=== PATIENT | male | born 1945 | race Caucasian/White ===

== ENCOUNTER 2021-02-03 13:55 | Emergency (ER) | payer MEDICARE ==
[2021-02-03 15:56] VITALS: BP 142/73; PULSE 63; RESP 16; TEMP 97.8
[2021-02-03] MEDS ORDERED: HYDROcodone/APAP 5-325MG 1 EACH TAB PO STA (18:20)
--- NOTE | 2021-02-03 18:25 | ED ---
General Adult HPI - General Chief complaint: Extremity Problem,Nontraumatic Stated complaint: EXTREMITY PAIN Time Seen by Provider: 02/03/21 17:55 Source: patient, family, RN notes reviewed, old records reviewed Mode of arrival: ambulatory Limitations: no limitations - History of Present Illness Initial comments: This is a well-appearing 75-year-old male, alert and oriented 4, presents to the emergency room with a family member complaining of bilateral feet pain for the past week. Patient states he did not have any injury. He describes the pain as burning and awakens him at night. It is worse at night and has difficulty sleeping. He states that the right one is more swollen around the right great toe. Denies any redness. He states that during the day when he is up walking it gets a little better. He denies any fevers. Denies any other joint involvement. He has no medical history other than hypertension. He is a smoker. -: week(s) (1) Location: left, right, lower extremity (Feet) Radiation: non-radiation Severity scale (1-10): 7 Quality: aching Consistency: constant Improves with: other Worsens with: other (Elevation) Associated Symptoms: denies other symptoms Treatments Prior to Arrival: other (Topical cortisone cream) - Related Data Home Medications Medication Instructions Recorded Confirmed Carvedilol [Coreg] 18.75 mg PO HS 02/03/21 02/03/21 Carvedilol [Coreg] 25 mg PO DAILY 02/03/21 02/03/21 amLODIPine [Norvasc] 5 mg PO BID 02/03/21 02/03/21 hydrALAZINE HCL [Apresoline] 50 mg PO BID 02/03/21 02/03/21 Previous Rx's Medication Instructions Recorded predniSONE 50 mg PO DAILY #5 tab 02/03/21 Allergies Allergy/AdvReac Type Severity Reaction Status Date / Time No Known Allergies Allergy Verified 02/03/21 19:50 Review of Systems ROS Statement: Those systems with pertinent positive or pertinent negative responses have been documented in the HPI. ROS Other: All systems not noted in ROS Statement are negative. Past Medical History Past Medical History: Hypertension History of Any Multi-Drug Resistant Organisms: None Reported Past Surgical History: Orthopedic Surgery Past Psychological History: No Psychological Hx Reported Smoking Status: Current every day smoker Past Alcohol Use History: None Reported Past Drug Use History: None Reported General Exam Limitations: no limitations General appearance: alert, in no apparent distress Head exam: Present: atraumatic, normocephalic, normal inspection Eye exam: Present: normal appearance, EOMI Respiratory exam: Present: rhonchi. Absent: wheezes, stridor, chest wall tenderness, accessory muscle use Cardiovascular Exam: Present: regular rate, normal rhythm, normal heart sounds. Absent: systolic murmur, diastolic murmur, rubs, gallop, clicks Left Ankle exam: Present: normal inspection, full ROM. Absent: abrasion, laceration, ecchymosis, deformity, crepitus, erythema Foot/Toe exam: Present: normal inspection, full ROM, tenderness (Plantar surface), swelling (Trace) Neurovascular tendon exam: Present: no vascular compromise. Absent: pulse deficit, abnormal cap refill, pallor, foot drop Right Ankle exam: Present: full ROM, swelling. Absent: ecchymosis, deformity, erythema Foot/Toe exam: Present: tenderness (Plantar surface), swelling (surrounding great toe). Absent: ecchymosis, erythema Neurovascular tendon exam: Absent: no vascular compromise, pulse deficit, abnormal cap refill, pallor Back exam: Absent: tenderness Neurological exam: Present: alert, oriented X3 Psychiatric exam: Present: normal affect, normal mood Skin exam: Present: warm, dry, intact, normal color. Absent: rash, cyanosis, diaphoretic, erythema, petechiae, pallor Course Vital Signs 02/03/21 15:52 Temperature 97.8 F Pulse Rate 63 Respiratory 16 Rate Blood Pressure 142/73 O2 Sat by Pulse 95 Oximetry Medical Decision Making - Medical Decision Making This is a well-appearing 75-year-old male who presents to the emergency room with lateral foot pain. Patient states has been ongoing for 1 week. States th at the pain is burning in nature and keeps him up at night. He states that during the day it is not as bad. Denies any lower leg pain. He has not had this happen before. There is no erythema noted. Capillary refill is less than 2 seconds and pedal pulses are present bilaterally. Denies any other joint pain or swelling. He denies history of diabetes. No evidence of Ariza's neuroma. There is no rashes noted. He states that he did get some relief with topical cortisone cream but only lasted for a short few hours. X-ray of the right foot and ankle show no evidence of acute fracture. 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 He'll be prescribed a 5 day course of prednisone and directed to follow up with podiatry Case discussed with Dr. Hargrove who was also at bedside. Disposition Clinical Impression: Arthritis Disposition: HOME SELF-CARE Condition: Good Instructions (If sedation given, give patient instructions): Osteoarthritis (ED) Additional Instructions: Take Tylenol and prednisone as prescribed for pain. Do not take Motrin while taking prednisone. Follow-up with podiatry next week. Return to the emergency room with any new or worsening symptoms including fever, redness or increased pain. Prescriptions: predniSONE 50 mg PO DAILY #5 tab Is patient prescribed a controlled substance at d/c from ED?: No Referrals: Jacques Solis DO [Primary Care Provider] - 1-2 days Rafy Villasenor DPM [STAFF PHYSICIAN] - 1-2 days Time of Disposition: 19:59
[2021-02-03] MEDS ORDERED: predniSONE 50 MG TAB PO STA (18:45)
--- NOTE | 2021-02-03 19:49 | XR ---
INDICATION: Patient age:Male; 75 years old; Reason for study: pain; PHH. COMPARISON: Lower extremity radiograph same day. TECHNIQUE: The foot and ankle was examined in the AP, oblique, and lateral projections. FINDINGS: The laterality marker is labeled left however the images represent the right foot, as well as confirmed talking to the phone technician. No evidence of any acute osseous pathology. No evidence of soft tissue swelling. Joints are preserve d. Incidental note is made of symphalangism of the fifth distal interphalangeal joint. Degenerative c hanges are seen involving the first metatarsophalangeal joint with disc space narrowing osteophytes a nd sclerosis. Fixation hardware within the medial malleolus appears intact. IMPRESSION: 1. No evidence of acute fracture. The laterality marker is labeled left however the images represent the right foot. 2. Moderate osteoarthritis changes at the first metatarsal phalangeal joint.
[2021-02-03] MEDS ORDERED: ACET/COD 300 MG/30 MG STARTER PACK 6 TAB BTL PO STA (20:02)
== END 2021-02-03 20:11 | disposition home or self-care (01) ==
LOC: EC 13:55
DX: M19.071 Primary osteoarthritis, right ankle and foot (principal); I10 Essential (primary) hypertension; F17.200 Nicotine dependence, unspecified, uncomplicated; Z79.899 Other long term (current) drug therapy
CPT/HCPCS: 73610; 73630; 99283; J7512

== ENCOUNTER → 2021-11-26 | Outpatient (CLI) | payer MEDICARE ==
--- NOTE | 2021-11-26 14:17 | XR ---
EXAMINATION TYPE: XR orbit detect foreign body DATE OF EXAM: 11/26/2021 COMPARISON: NONE HISTORY: 76-year-old male Z18.10 RETAINED METAL FRAGMENTS, UNSPECIFIED. Pre MRI. Rule out metal fore ign body. Hx metal sander TECHNIQUE: 3 views FINDINGS: Scattered dental amalgam is noted. No retained metal debris within either orbit. IMPRESSION: No retained metal projecting in either orbit. Clear for MRI.
== END | disposition home or self-care (01) ==
LOC: RADXRMAIN 13:48
PROVIDERS: ATTEND Physical Medicine & Rehabilitation
DX: Z18.10 Retained metal fragments, unspecified (principal)
CPT/HCPCS: 70030